=== PATIENT | female | born 1990 | race Caucasian/White ===

== ENCOUNTER 2017-08-25 19:30 | Inpatient (IN) | payer OTHER ==
--- NOTE | 2017-08-25 20:54 | PN ---
Progress Note (short form) - Note Progress Note: cx 4 cm 75 vx -2 , fhr cat 1, irregular contraction, AROM,clear fluid
[2017-08-25] MEDS ORDERED: DEXTROSE 5%-LACTATED RINGERS 1,000 ML IV SCH (21:00)
[2017-08-25] MEDS ORDERED: OXYTOCIN 15 UNITS/ LR 250 ML 250 ML IVPB SCH (21:00)
[2017-08-25 21:01] LABS: BASOPHIL 0.2 % (0-2.0); EOSINOPHIL 0.5 % (0-4.5); MCH 30.2 pg (25.7-33.7); MCHC 34.5 g/dl (32.0-36.0); MEAN CELL VOLUME 87.5 fl (80-96); MEAN PLT VOLUME 10.3 fl (7.5-11.1); NEUTROPHILS 66.8 % (42.8-82.8); PLATELET COUNT 150 K/MM3 (134-434); RDW 14.8 % (11.6-15.6); WHITE BLOOD COUNT 6.9 K/mm3 (4.0-10.0)
--- NOTE | 2017-08-25 21:03 | HP ---
Past Medical History - Primary Care Physician PCP:: Neel Lyman - Admission Chief Complaint: 40.1 weeks, labor History of Present Illness: 27 yo f edc by sono 08/24 17, cx 4 cm 75 vx -2 mi, fhr cat 1admitted in early labor for pitocin stimulation. History Source: Patient Limitations to Obtaining History: No Limitations - Past Medical History ...: 3 ...Para: 2 ...Term: 2 ...: 0 ...Spon : 0 ...Induced : 0 ...Multiple Gestation: 0 ...LMP: 10/28/16 ... Weeks Gestation by Dates: 40.1 ...EDC by Dates: 08/24/17 ...EDC by Sono: 08/24/17 - Past Surgical History Hx Myomectomy: No Hx Transabdominal Cerclage: No - Alcohol/Substance Use Hx Alcohol Use: No History of Substance Use: reports: None - Social History History of Recent Travel: No Home Medications - Allergies Allergies/Adverse Reactions: Allergies Allergy/AdvReac Type Severity Reaction Status Date / Time No Known Allergies Allergy Verified 08/25/17 03:54 - Home Medications Home Medications: Ambulatory Orders Vit No.130/Iron/FA [ Vitamins] 1 each PO DAILY 08/02/17 Ferrous Sulfate [Feosol] 325 mg PO DAILY 08/25/17 Review of Systems - Review of Systems Constitutional: reports: No Symptoms Eyes: reports: No Symptoms HENT: reports: No Symptoms Neck: reports: No Symptoms Cardiovascular: reports: No Symptoms Respiratory: reports: No Symptoms Gastrointestinal: reports: No Symptoms Genitourinary: reports: No Symptoms Breasts: reports: No Symptoms Reported Musculoskeletal: reports: No Symptoms Integumentary: reports: No Symptoms Neurological: reports: No Symptoms Endocrine: reports: No Symptoms Hematology/Lymphatic: reports: No Symptoms Physical Exam - Maternity Constitutional: Yes: Well Nourished, No Distress, Calm Eyes: Yes: WNL, Conjunctiva Clear, EOM Intact HENT: Yes: WNL, Atraumatic, Normocephalic Neck: Yes: WNL, Supple, Trachea Midline Cardiovascular: Yes: WNL, Regular Rate and Rhythm Breast(s): Yes: WNL - Abdominal Exam/OB Fundal Height: 40 Number of Fetuses: Single Presentation: Vertex Contractions: Yes Regularity: Irregular Intensity: Moderate Monitor Mode: External Heart Rate Location: [facility] Category: I Accelerations: Uniform Decelerations: None - Vaginal Exam/OB Vaginal Bleediing: No Speculum Exam: No Dilatation (cm): 4 cm Effacement (%): 75 Amniotic Membrane Status: Bulging Presentation: Vertex/Position Station: -2 - Physical Exam Musculoskeletal: Yes: WNL Edema: Yes Edema: LLE: Trace, RLE: Trace Deep Tendon Reflex Grade: Normal +2 ...Motor Strength: WNL Psychiatric: Yes: WNL Problem List - Problems (1) Post term over 40 weeks Code(s): O48.0 - POST-TERM (2) Labor established Code(s): ZGW9577 - Assessment/Plan admit for vaginal delivery, pitocin rba discussed
[2017-08-25 21:26] LABS: INR 1.04 (0.82-1.09); PROTHROMBIN TIME (PATIENT) 11.5 SEC (9.98-11.88)
[2017-08-25 21:27] VITALS: BMI 33.3
[2017-08-25 21:36] LABS: ANION GAP 8 (8-16); CALCIUM 8.7 mg/dL (8.5-10.1); CO2 25 mmol/L (21-32); CREATININE 0.6 mg/dL (0.55-1.02); GLUCOSE,RANDOM 72 mg/dL (74-106)
[2017-08-25 21:38] LABS: URINE MARIJUANA THC NEGATIVE ng/ml (CUTOFF=50)
[2017-08-25] MEDS ORDERED: LIDOCAINE HCL 2% (20ML MULTI-DOSE VIAL) NR ONE (22:15)
[2017-08-25] MEDS ORDERED: ELECTROLYTE-148 SOLN 500 ML IV ONE (22:15)
[2017-08-25] MEDS ORDERED: LIDOCAINE 1%/EPI 1:100000 (50 ML MULTI DOSE VIAL) ONE (22:15)
[2017-08-25] MEDS ORDERED: FENTANYL/BUPIVACAINE/NS/PF - PCEA - 50 ML DISP.SYRIN EP SCH (22:45)
[2017-08-25] MEDS ORDERED: ELECTROLYTE-148 SOLN 1,000 ML IV SCH (23:00)
[2017-08-26 03:19] LABS: VENOUS PH 7.11 (7.32-7.42)
[2017-08-26] MEDS ORDERED: WITCH HAZEL 50% (TUCKS) 40 PAD/JAR PAD TP PRN (03:19)
[2017-08-26] MEDS ORDERED: BISACODYL 10 MG SUPP.RECT RC PRN (03:19)
[2017-08-26] MEDS ORDERED: METHYLERGONOVINE MALEATE 0.2 MG/1 ML AMP IM PRN (03:19)
[2017-08-26] MEDS ORDERED: BENZOCAINE 28 GM HEMORRHOIDAL OINTMENT TP PRN (03:19)
[2017-08-26] MEDS ORDERED: BENZOCAINE 20% 57 GM BOTTLE TP PRN (03:19)
--- NOTE | 2017-08-26 03:21 | PN ---
Progress Note (short form) - Note Progress Note: 130 am cx full 100 vx 0 , mr clear, fhr cat 2 with variable decel,good recovery wants to push Problem List - Problems (1) Post term over 40 weeks Code(s): O48.0 - POST-TERM (2) Labor established Code(s): [id number] -
[2017-08-26] MEDS ORDERED: D5W-LR W/ 20 UNITS OXYTOCIN 1,000 ML IV SCH (03:30)
[2017-08-26] MEDS: ACETAMINOPHEN 325 MG TABLET (FP) PO PRN ×4 (05:16→22:08)
[2017-08-26] MEDS: IBUPROFEN 600 MG TABLET (FP) PO PRN ×2 (05:17→22:10)
[2017-08-26] MEDS: PRENATAL VITAMINS W/ FOLIC ACID TABLET (FP) PO SCH (09:50)
[2017-08-26] MEDS: FERROUS SO4 325 MG TABLET (FP) PO SCH ×2 (09:50→22:08)
[2017-08-26] MEDS: oxyCODONE HCL 5 MG TABLET PO PRN ×2 (09:50→14:58)
[2017-08-26] MEDS: SENNOSIDES/DOCUSATE COMBO (SENNA PLUS) TABLET (UD) PO PRN (22:11)
[2017-08-27 08:44] LABS: BASOPHIL 0.3 % (0-2.0); MCH 29.8 pg (25.7-33.7); MCHC 33.4 g/dl (32.0-36.0); MEAN CELL VOLUME 89.2 fl (80-96); MEAN PLT VOLUME 9.2 fl (7.5-11.1); NEUTROPHILS 66.1 % (42.8-82.8); PLATELET COUNT 135 K/MM3 (134-434); RDW 15.5 % (11.6-15.6); WHITE BLOOD COUNT 8.6 K/mm3 (4.0-10.0)
[2017-08-27] MEDS ORDERED: DIPHTH,PERTUSS(ACELL),TET 0.5 ML DISP.SYRIN IM ONE (10:00)
[2017-08-27] MEDS: FERROUS SO4 325 MG TABLET (FP) PO SCH ×2 (10:21→21:05)
[2017-08-27] MEDS: PRENATAL VITAMINS W/ FOLIC ACID TABLET (FP) PO SCH (10:21)
[2017-08-27] MEDS: ACETAMINOPHEN 325 MG TABLET (FP) PO PRN ×3 (10:22→20:38)
[2017-08-27] MEDS: IBUPROFEN 600 MG TABLET (FP) PO PRN ×3 (10:23→20:38)
--- NOTE | 2017-08-27 14:03 | PN ---
Post Progress Note Post Day: 1 Type of Delivery: Vital Signs: Vital Signs Temperature 98.3 F 08/27/17 10:00 Pulse Rate 100 H 08/27/17 10:00 Respiratory Rate 18 08/27/17 10:00 Blood Pressure 125/72 08/27/17 10:00 O2 Sat by Pulse Oximetry (%) 100 08/26/17 00:45 Breast Exam: Yes: Soft Uterus: Yes: Fundus Firm Abdomen/GI: Yes: Abdomen soft Lochia: Yes: Rubra Lochia, amount: Small Extremities: Yes: Calves non-tender Perineum: Yes: Intact - Labs Labs: CBC WBC 8.6 K/mm3 (4.0-10.0) 08/27/17 08:15 RBC 3.39 M/mm3 (3.60-5.2) L 08/27/17 08:15 Hgb 10.1 GM/dL (10.7-15.3) L D 08/27/17 08:15 Hct 30.2 % (32.4-45.2) L 08/27/17 08:15 MCV 89.2 fl (80-96) 08/27/17 08:15 MCH 29.8 pg (25.7-33.7) 08/27/17 08:15 MCHC 33.4 g/dl (32.0-36.0) 08/27/17 08:15 RDW 15.5 % (11.6-15.6) 08/27/17 08:15 Plt Count 135 K/MM3 (134-434) 08/27/17 08:15 MPV 9.2 fl (7.5-11.1) D 08/27/17 08:15 Neutrophils % 66.1 % (42.8-82.8) 08/27/17 08:15 Lymphocytes % 27.4 % (8-40) 08/27/17 08:15 Monocytes % 4.2 % (3.8-10.2) 08/27/17 08:15 Eosinophils % 2.0 % (0-4.5) D 08/27/17 08:15 Basophils % 0.3 % (0-2.0) 08/27/17 08:15 Assessment/Plan as above reg diet oob continue care
[2017-08-27] MEDS: SENNOSIDES/DOCUSATE COMBO (SENNA PLUS) TABLET (UD) PO PRN (20:37)
[2017-08-28] MEDS: ACETAMINOPHEN 325 MG TABLET (FP) PO PRN ×3 (02:16→11:43)
[2017-08-28] MEDS: IBUPROFEN 600 MG TABLET (FP) PO PRN ×3 (02:16→11:43)
[2017-08-28] MEDS: FERROUS SO4 325 MG TABLET (FP) PO SCH (09:17)
[2017-08-28] MEDS: PRENATAL VITAMINS W/ FOLIC ACID TABLET (FP) PO SCH (09:19)
[2017-08-28 11:50] VITALS: BP 126/69; PULSE 106; TEMP 99.4
== END 2017-08-28 12:45 | disposition home or self-care (01) | DRG 560 ==
LOC: JLDR 19:30 → J3W 08-26 05:00
PROVIDERS: ADMIT Obstetrics & Gynecology; ATTEND Obstetrics & Gynecology
PROC: 10E0XZZ Delivery of Products of Conception, External Approach (ICD-10-PCS; principal; 2017-08-26)
DX: O48.0 Post-term pregnancy (principal); O76 Abnormality in fetal heart rate and rhythm complicating labor and delivery; Z3A.40 40 weeks gestation of pregnancy; Z37.0 Single live birth
CPT/HCPCS: 36415; 59025; 59409; 80048; 80307; 82803; 85025; 85610; 85730; 86593; 86850; 86900; 86901; 90715

== ENCOUNTER 2018-09-07 05:40 | Inpatient (IN) | payer OTHER ==
--- NOTE | 2018-09-07 06:52 | HP ---
Past Medical History - Admission Chief Complaint: uterine contractions History of Present Illness: 28yo @ 40.3wks here in active labor. +ctx. No VB/LOF. +FM. Preg c/b limited PNC History Source: Patient - Past Medical History ...: 4 ...Para: 3 ...Term: 3 ...: 0 ...Spon : 0 ...Induced : 0 ...Multiple Gestation: 0 ...EDC by Dates: 09/04/18 Heme/Onc: No: Anemia, B12 Deficiency, Bleeding Disorder, Cancer, Current Chemotherapy, Current Radiation Therapy, Hemochromatosis, Hypercoaguable State, Myeloproliferative Synd, Sickle Cell Disease, Sickle Cell Trait, Thrombocytopenia, Other - Past Surgical History Past Surgical History: No: None, AAA Repair, AICD, Amputation, Appendectomy, Arthrosocopy, AV Fistula/Graft, Bariatric Surgery, Breast Biopsy, Bypass, CABG, Carotid Endarterectomy, Cataract Removal, Cholecystectomy, Colectomy, Colonoscopy, Colostomy, Craniotomy, , Cystectomy, Hernia Repair, Hysterectomy, Ileal Conduit, Ileosotomy, Joint Replacement, Kidney Transplant, Laminectomy, Liver Transplant, Mastectomy, Nephrectomy, Oopherectomy, Orchiectomy, Permanent Pacemaker, Prostatectomy, Splenectomy, Stent, Thoracotomy , TURP, Tonsillectomy, Tubal Ligation, Upper Endoscopy, Valve Replacement, Vasectomy, Vein Stripping/Ligation Hx Myomectomy: No Hx Transabdominal Cerclage: No - Smoking History Smoking history: Never smoked Have you smoked in the past 12 months: No - Alcohol/Substance Use Hx Alcohol Use: No History of Substance Use: reports: None - Social History Usual Living Arrangement: Yes: With Parent History of Recent Travel: No Home Medications - Allergies Allergies/Adverse Reactions: Allergies Allergy/AdvReac Type Severity Reaction Status Date / Time No Known Allergies Allergy Verified 08/25/17 03:54 - Home Medications Home Medications: Ambulatory Orders Vit No.130/Iron/Folic [ Vitamins] 1 each PO DAILY 08/02/17 Ferrous Sulfate [Feosol] 325 mg PO DAILY 08/25/17 Physical Exam - Maternity Constitutional: Yes: Well Nourished Eyes: Yes: WNL - Abdominal Exam/OB Number of Fetuses: Single Presentation: Vertex Contractions: Yes Regularity: Regular Intensity: Strong Monitor Mode: External Category: II Accelerations: None Decelerations: Variable - Vaginal Exam/OB Vaginal Bleediing: No Speculum Exam: No Dilatation (cm): 7 Effacement (%): 100 Amniotic Membrane Status: Ruptured Amniotic Fluid: Yes: Clear Presentation: Vertex/Position Station: 0 - Physical Exam Musculoskeletal: Yes: WNL Extremities: Yes: WNL Integumentary: Yes: WNL Psychiatric: Yes: WNL Problem List - Problems (1) Uterine contractions Code(s): [id number] - Assessment/Plan 28yo @ 40.3wks here in labor Admit to L&D NPO, IVFs Declines epidural AROM, clears Cat II tracing, but progressing quickly, good variability throughout Anticipate YANG Frank MD
[2018-09-07 06:55] VITALS: BMI 31.2
[2018-09-07 06:57] LABS: BASO % 0.3 % (0-2.0); EOS % 1.1 % (0-4.5); HEMATOCRIT 32.4 % (32.4-45.2); HEMOGLOBIN 10.6 GM/dL (10.7-15.3); LYMPH % 25.3 % (8-40); MCH 28.1 pg (25.7-33.7); MCHC 32.7 g/dl (32.0-36.0); MEAN PLT VOLUME 9.7 fl (7.5-11.1); MONO % 5.8 % (3.8-10.2); NEUT % 67.5 % (42.8-82.8); PLATELET COUNT 126 K/MM3 (134-434); RBC 3.77 M/mm3 (3.60-5.2); RDW 15.5 % (11.6-15.6)
[2018-09-07] MEDS ORDERED: DEXTROSE 5%-LACTATED RINGERS 1,000 ML IV SCH (07:00)
[2018-09-07] MEDS ORDERED: OXYTOCIN 20 UNITS in 0.9% NS 20 UNIT/1,000 ML INFUS.BAG IV ONE (07:09)
[2018-09-07 07:10] LABS: ANION GAP 9 MMOL/L (8-16); BLOOD UREA NITROGEN 12 mg/dL (7-18); CALCIUM 8.3 mg/dL (8.5-10.1); CHLORIDE 107 mmol/L (98-107); CO2 22 mmol/L (21-32); CREATININE 0.6 mg/dL (0.55-1.3); GLUCOSE,RANDOM 94 mg/dL (74-106); POTASSIUM 3.9 mmol/L (3.5-5.1); SODIUM 138 mmol/L (136-145)
[2018-09-07 07:12] LABS: INR 0.96 (0.83-1.09); PROTHROMBIN TIME (PATIENT) 11.3 SEC (9.7-13.0)
[2018-09-07] MEDS ORDERED: LIDOCAINE HCL 1% PRESERVATIVE FREE - 30ML VIAL ONE (07:23)
[2018-09-07] MEDS ORDERED: BENZOCAINE 20% 57 GM BOTTLE TP PRN (07:34)
[2018-09-07] MEDS ORDERED: BENZOCAINE 28 GM HEMORRHOIDAL OINTMENT TP PRN (07:34)
[2018-09-07] MEDS ORDERED: WITCH HAZEL 50% (TUCKS) 40 PAD/JAR PAD TP PRN (07:34)
[2018-09-07] MEDS ORDERED: BISACODYL 10 MG SUPP.RECT RC PRN (07:34)
--- NOTE | 2018-09-07 07:34 | PN ---
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 No anesthesia. 40wk gestation. Spontaneous delivery of anterior shoulder without difficulty. placed on maternal abdomen. Cord clamped and cut after two minutes. Apgars 9/9. Weight pending. Spontaneous delivery of intact placenta. Perineum inspected, small first degree laceration noted. 9cc of 1% lidocaine injected. Anesthesia confirmed. Laceration repaired with 2-0 chromic. Fundus firm. EBL 250ml. Mother and baby doing well. Mattie Frank MD
[2018-09-07] MEDS ORDERED: OXYTOCIN 20 UNITS in 0.9% NS 20 UNIT/1,000 ML INFUS.BAG IV SCH (07:45)
[2018-09-07] MEDS ORDERED: IBUPROFEN 600 MG TABLET (FP) PO ONE (08:48)
[2018-09-07] MEDS: IBUPROFEN 600 MG TABLET (FP) PO PRN ×2 (08:50→16:13)
[2018-09-07] MEDS: PRENATAL VITAMINS W/ FOLIC ACID TABLET (FP) PO SCH (10:38)
[2018-09-07 10:56] LABS: COCAINE, UR NEGATIVE ng/ml (CUTOFF=300); METHADONE, UR NEGATIVE ng/ml (CUTOFF=300); OPIATES, URI NEGATIVE ng/ml (CUTOFF=300); PHENCYCLIDINE,URINE NEGATIVE ng/ml (CUTOFF=25); URINE AMPHETAMINES NEGATIVE ng/ml (CUTOFF=500); URINE BARBITURATES NEGATIVE ng/ml (CUTOFF=200); URINE BENZODIAZEPINES NEGATIVE ng/ml (CUTOFF=200)
[2018-09-07] MEDS: ACETAMINOPHEN 325 MG TABLET (FP) PO PRN (16:14)
[2018-09-08] MEDS: IBUPROFEN 600 MG TABLET (FP) PO PRN ×4 (04:09→22:00)
[2018-09-08] MEDS: ACETAMINOPHEN 325 MG TABLET (FP) PO PRN ×4 (04:09→22:00)
--- NOTE | 2018-09-08 07:16 | PN ---
Progress Note (short form) - Note Progress Note: ppd 1 doing well, no c/o ,voids ok CBC, BMP 09/07/18 06:15 09/07/18 06:15 Last Vital Signs Temp Pulse Resp BP Pulse Ox 98.1 F 98 H 20 114/60 99 09/08/18 04:00 09/08/18 04:00 09/08/18 04:00 09/08/18 04:00 09/07/18 09:22 abdomen soft, no cva uterus firm ,non tender lochia mild no calf tenderness plan ambulate, cbc
[2018-09-08 07:40] LABS: BASO % 0.4 % (0-2.0); EOS % 1.9 % (0-4.5); HEMATOCRIT 26.9 % (32.4-45.2); HEMOGLOBIN 8.8 GM/dL (10.7-15.3); LYMPH % 10.7 % (8-40); MCH 28.5 pg (25.7-33.7); MCHC 32.9 g/dl (32.0-36.0); MEAN CELL VOLUME 86.8 fl (80-96); MEAN PLT VOLUME 9.6 fl (7.5-11.1); PLATELET COUNT 101 K/MM3 (134-434); RDW 15.7 % (11.6-15.6); WHITE BLOOD COUNT 5.1 K/mm3 (4.0-10.0)
[2018-09-08] MEDS: PRENATAL VITAMINS W/ FOLIC ACID TABLET (FP) PO SCH (09:28)
[2018-09-08] MEDS ORDERED: DIPHTH,PERTUSS(ACELL),TET 0.5 ML DISP.SYRIN IM ONE (10:00)
[2018-09-08] MEDS ORDERED: SENNOSIDES/DOCUSATE COMBO (SENNA PLUS) TABLET (UD) PO PRN (22:00)
--- NOTE | 2018-09-09 01:55 | PN ---
Post Progress Note Post Day: 2 Type of Delivery: Vital Signs: Vital Signs Temperature 98.6 F 09/08/18 21:00 Pulse Rate 96 H 09/08/18 21:00 Respiratory Rate 20 09/08/18 21:00 Blood Pressure 109/68 09/08/18 21:00 O2 Sat by Pulse Oximetry (%) 99 09/07/18 09:22 Uterus: Yes: Fundus Firm Abdomen/GI: Yes: Abdomen soft Lochia: Yes: Rubra Lochia, amount: Small Extremities: Yes: Calves non-tender Perineum: Yes: Intact Activity: Ambulating - Labs Labs: CBC WBC 5.1 K/mm3 (4.0-10.0) 09/08/18 07:00 RBC 3.10 M/mm3 (3.60-5.2) L 09/08/18 07:00 Hgb 8.8 GM/dL (10.7-15.3) L 09/08/18 07:00 Hct 26.9 % (32.4-45.2) L D 09/08/18 07:00 MCV 86.8 fl (80-96) 09/08/18 07:00 MCH 28.5 pg (25.7-33.7) 09/08/18 07:00 MCHC 32.9 g/dl (32.0-36.0) 09/08/18 07:00 RDW 15.7 % (11.6-15.6) H 09/08/18 07:00 Plt Count 101 K/MM3 (134-434) L 09/08/18 07:00 MPV 9.6 fl (7.5-11.1) 09/08/18 07:00 Absolute Neuts (auto) 4.1 K/mm3 (1.5-8.0) 09/08/18 07:00 Neutrophils % 80.0 % (42.8-82.8) 09/08/18 07:00 Lymphocytes % 10.7 % (8-40) D 09/08/18 07:00 Monocytes % 7.0 % (3.8-10.2) 09/08/18 07:00 Eosinophils % 1.9 % (0-4.5) 09/08/18 07:00 Basophils % 0.4 % (0-2.0) 09/08/18 07:00 Nucleated RBC % 0 % (0-0) 09/08/18 07:00 Assessment/Plan as above dc home
[2018-09-09] MEDS: ACETAMINOPHEN 325 MG TABLET (FP) PO PRN ×2 (05:31→12:33)
[2018-09-09] MEDS: IBUPROFEN 600 MG TABLET (FP) PO PRN ×2 (05:32→12:32)
[2018-09-09 08:59] VITALS: BP 102/67; PULSE 82; TEMP 98.1
[2018-09-09] MEDS: PRENATAL VITAMINS W/ FOLIC ACID TABLET (FP) PO SCH (10:14)
== END 2018-09-09 14:00 | disposition home or self-care (01) | DRG 560 ==
LOC: JLDR 05:40 → J3W 09:25
PROVIDERS: ADMIT Obstetrics & Gynecology; ATTEND Obstetrics & Gynecology
DX: O48.0 Post-term pregnancy (principal); O70.0 First degree perineal laceration during delivery; Z3A.40 40 weeks gestation of pregnancy; Z37.0 Single live birth
CPT/HCPCS: 36415; 59409; 80048; 80307; 85025; 85610; 85730; 86593; 86850; 86900; 86901; 90715